=== PATIENT | female | born 1960 | race Caucasian/White ===

== ENCOUNTER 2018-08-07 10:56 | Emergency (ER) | payer OTHER ==
[2018-08-07] MEDS ORDERED: METO25TA23 PO (11:05)
--- NOTE | 2018-08-07 11:12 | ER Report ---
History and Physical Time Seen By MD: 11:05 Hx. of Stated Complaint: [facility]", denies s/s at this time, hx afib HPI/ROS CHIEF COMPLAINT: A. fib HISTORY OF PRESENT ILLNESS: 58-year-old female patient presents to emergency room with complaint of A. fib. Patient states that she has a long-standing history of A. fib. She states she has had 2 ablations. She states one was done in [place] the second was done at the [facility]. Patient states that with the second one they were not able to get the entire pathway burn, stating that if they gone any further she would have a heart attack. Patient states that she has been taking her medication. She was prescribed metoprolol twice a day. She states that while living in [place] she would intermittently take it in the evening. She states that rarely channeling problems. She states that she moved to [place]. During that time she never took it in the evening. She states that since she moved to [place], 3 months ago, that she has been trying to take her medication more regularly. She states that she still has episodes of A. fib. She denies having any nausea, vomiting or diarrhea. Patient states she did have an episode this morning where her heart was racing up over 200. She states she is very lightheaded, she was sweaty and clammy, she also states that she thought she was going to pass out. Patient took a short acting metoprolol, which seem to help. By the time she got to her primary care provider the A. fib was stopped. She was referred to the emergency room for further evaluation. REVIEW OF SYSTEMS: Respiratory: No cough, no dyspnea. Cardiovascular: As noted above Gastrointestinal: No vomiting, no abdominal pain. Musculoskeletal: No back pain. Allergies: Coded Allergies: Sulfa (Sulfonamide Antibiotics) (Verified Allergy, Unknown, 08/07/18) clarithromycin (Verified Allergy, Unknown, 08/07/18) Home Meds Active Scripts Nitrofurantoin Monohyd/M-Cryst (MACROBID 100 MG CAPSULE) 100 Mg Capsule, 100 MG PO BID, #14 CAPSULE Prov:GEMA CHRISTIAN 08/07/18 Metoprolol Succinate (METOPROLOL SUCCINATE) 50 Mg Tab.er.24h, 1 TAB PO QDAY, #30 TAB Prov:GEMA CHRISTIAN 08/07/18 Reported Medications Metoprolol Succinate (METOPROLOL SUCCINATE) 25 Mg Tab.er.24h, 2 TAB PO QDAY, TAB 08/07/18 Past Medical/Surgical History Patient has a past medical history of A. fib. Patient surgical history of cardiac ablation, appendectomy. Reviewed Nurses Notes: Yes Constitutional Vital Sign - Last 24 Hours 08/07/18 08/07/18 08/07/18 08/07/18 11:00 11:04 11:15 11:20 Temp 97.9 Pulse 88 88 82 Resp 16 24 15 B/P (MAP) 164/99 164/99 (120) Pulse Ox 93 96 94 O2 Delivery Room Air 08/07/18 08/07/18 08/07/18 08/07/18 11:30 11:35 12:00 12:05 Pulse 89 83 Resp 13 9 B/P (MAP) 147/81 (103) 147/76 (99) Pulse Ox 96 94 08/07/18 08/07/18 08/07/18 08/07/18 12:10 12:25 12:30 12:50 Pulse 83 85 75 Resp 12 13 18 B/P (MAP) 141/82 (101) Pulse Ox 93 94 92 08/07/18 08/07/18 08/07/18 13:00 13:05 13:20 Pulse 76 77 Resp 18 17 B/P (MAP) 133/67 (89) Pulse Ox 92 94 Physical Exam General Appearance: The patient is alert, has no immediate need for airway protection and no current signs of toxicity. Respiratory: Chest is non tender, lungs are clear to auscultation. Cardiac: regular rate and rhythm Gastrointestinal: Abdomen is soft and non tender, no masses, bowel sounds normal. Musculoskeletal: Neck: Neck is supple and non tender. Extremities have full range of motion and are non tender. Skin: No rashes or lesions. DIFFERENTIAL DIAGNOSIS: After history and physical exam differential diagnosis was considered for chest pain including but not limited to myocardial ischemia, pericarditis pulmonary embolus, chest wall pain, pleural inflammation and pulmonary infectious causes. Medical Decision Making Data Points Result Diagram: 08/07/18 1108 08/07/18 1108 Laboratory Hematology Test 08/07/18 11:08 08/07/18 12:35 Red Blood Count 5.10 M/uL (4.17-5.56) Mean Corpuscular Volume 98.7 fL (80.0-96.0) Mean Corpuscular Hemoglobin 33.9 pg (26.0-33.0) Mean Corpuscular Hemoglobin Concent 34.3 g/dL (32.0-36.0) Red Cell Distribution Width 13.4 % (11.5-14.5) Mean Platelet Volume 9.8 fL (7.2-11.1) Neutrophils (%) (Auto) 65.0 % (39.4-72.5) Lymphocytes (%) (Auto) 22.5 % (17.6-49.6) Monocytes (%) (Auto) 11.6 % (4.1-12.4) Eosinophils (%) (Auto) 0.4 % (0.4-6.7) Basophils (%) (Auto) 0.5 % (0.3-1.4) Nucleated RBC Relative Count (auto) 0.0 /100WBC Neutrophils # (Auto) 7.0 K/uL (2.0-7.4) Lymphocytes # (Auto) 2.4 K/uL (1.3-3.6) Monocytes # (Auto) 1.2 K/uL (0.3-1.0) Eosinophils # (Auto) 0.0 K/uL (0.0-0.5) Basophils # (Auto) 0.1 K/uL (0.0-0.1) Nucleated RBC Absolute Count (auto) 0.00 K/uL Sodium Level 140 mmol/L (137-145) Potassium Level 4.1 mmol/L (3.5-5.0) Chloride Level 105 mmol/L (98-107) Carbon Dioxide Level 29 mmol/L (22-31) Blood Urea Nitrogen 8 mg/dl (7-18) Creatinine 0.90 mg/dl (0.52-1.04) Glomerular Filtration Rate Calc > 60.0 Random Glucose 100 mg/dl (75-110) Calcium Level 9.5 mg/dl (8.4-10.2) Magnesium Level 2.0 mg/dl (1.7-2.2) Total Bilirubin 0.7 mg/dl (0.2-1.3) Aspartate Amino Transf (AST/SGOT) 26 U/L (0-35) Alanine Aminotransferase (ALT/SGPT) 24 U/L (0-56) Alkaline Phosphatase 63 U/L (0-126) Troponin I < 0.012 ng/ml B-Type Natriuretic Peptide 67 pg/ml (0-100) Total Protein 8.0 g/dl (6.3-8.2) Albumin 4.5 g/dl (3.5-5.0) Urine Color Yellow Urine Clarity Clear Urine pH 6.0 pH (4.8-9.5) Urine Specific Ruth 1.006 Urine Protein Negative mg/dL (NEGATIVE) Urine Glucose (UA) Negative mg/dL (NEGATIVE) Urine Ketones Negative mg/dL (NEGATIVE) Urine Blood Small (NEGATIVE) Urine Nitrite Negative (NEGATIVE) Urine Bilirubin Negative (NEGATIVE) Urine Urobilinogen Negative mg/dL (0.2-1.9) Urine Leukocyte Esterase Trace (NEGATIVE) Urine RBC 2 /HPF (0-2/HPF) Urine WBC 6 /HPF (0-5/HPF) Urine Squamous Epithelial Cells None /LPF (</=FEW) Urine Transitional Epithelial Cells Few /LPF (NONE-FEW) Urine Bacteria Many /HPF (NONE-FEW) Urine Mucus None /HPF (NONE-FEW) Chemistry Test 08/07/18 11:08 08/07/18 12:35 White Blood Count 10.7 k/uL (4.5-11.0) Red Blood Count 5.10 M/uL (4.17-5.56) Hemoglobin 17.3 g/dL (12.0-16.0) Hematocrit 50.3 % (34.0-47.0) Mean Corpuscular Volume 98.7 fL (80.0-96.0) Mean Corpuscular Hemoglobin 33.9 pg (26.0-33.0) Mean Corpuscular Hemoglobin Concent 34.3 g/dL (32.0-36.0) Red Cell Distribution Width 13.4 % (11.5-14.5) Platelet Count 257 K/uL (150-450) Mean Platelet Volume 9.8 fL (7.2-11.1) Neutrophils (%) (Auto) 65.0 % (39.4-72.5) Lymphocytes (%) (Auto) 22.5 % (17.6-49.6) Monocytes (%) (Auto) 11.6 % (4.1-12.4) Eosinophils (%) (Auto) 0.4 % (0.4-6.7) Basophils (%) (Auto) 0.5 % (0.3-1.4) Nucleated RBC Relative Count (auto) 0.0 /100WBC Neutrophils # (Auto) 7.0 K/uL (2.0-7.4) Lymphocytes # (Auto) 2.4 K/uL (1.3-3.6) Monocytes # (Auto) 1.2 K/uL (0.3-1.0) Eosinophils # (Auto) 0.0 K/uL (0.0-0.5) Basophils # (Auto) 0.1 K/uL (0.0-0.1) Nucleated RBC Absolute Count (auto) 0.00 K/uL Glomerular Filtration Rate Calc > 60.0 Calcium Level 9.5 mg/dl (8.4-10.2) Magnesium Level 2.0 mg/dl (1.7-2.2) Total Bilirubin 0.7 mg/dl (0.2-1.3) Aspartate Amino Transf (AST/SGOT) 26 U/L (0-35) Alanine Aminotransferase (ALT/SGPT) 24 U/L (0-56) Alkaline Phosphatase 63 U/L (0-126) Troponin I < 0.012 ng/ml B-Type Natriuretic Peptide 67 pg/ml (0-100) Total Protein 8.0 g/dl (6.3-8.2) Albumin 4.5 g/dl (3.5-5.0) Urine Color Yellow Urine Clarity Clear Urine pH 6.0 pH (4.8-9.5) Urine Specific Ruth 1.006 Urine Protein Negative mg/dL (NEGATIVE) Urine Glucose (UA) Negative mg/dL (NEGATIVE) Urine Ketones Negative mg/dL (NEGATIVE) Urine Blood Small (NEGATIVE) Urine Nitrite Negative (NEGATIVE) Urine Bilirubin Negative (NEGATIVE) Urine Urobilinogen Negative mg/dL (0.2-1.9) Urine Leukocyte Esterase Trace (NEGATIVE) Urine RBC 2 /HPF (0-2/HPF) Urine WBC 6 /HPF (0-5/HPF) Urine Squamous Epithelial Cells None /LPF (</=FEW) Urine Transitional Epithelial Cells Few /LPF (NONE-FEW) Urine Bacteria Many /HPF (NONE-FEW) Urine Mucus None /HPF (NONE-FEW) Urinalysis Test 08/07/18 12:35 Urine Color Yellow Urine Clarity Clear Urine pH 6.0 pH (4.8-9.5) Urine Specific Ruth 1.006 Urine Protein Negative mg/dL (NEGATIVE) Urine Glucose (UA) Negative mg/dL (NEGATIVE) Urine Ketones Negative mg/dL (NEGATIVE) Urine Blood Small (NEGATIVE) Urine Nitrite Negative (NEGATIVE) Urine Bilirubin Negative (NEGATIVE) Urine Urobilinogen Negative mg/dL (0.2-1.9) Urine Leukocyte Esterase Trace (NEGATIVE) Urine RBC 2 /HPF (0-2/HPF) Urine WBC 6 /HPF (0-5/HPF) Urine Squamous Epithelial Cells None /LPF (</=FEW) Urine Transitional Epithelial Cells Few /LPF (NONE-FEW) Urine Bacteria Many /HPF (NONE-FEW) Urine Mucus None /HPF (NONE-FEW) EKG/Imaging EKG Interpretation 12 lead EKG: Rhythm: normal sinus rhythm [place]: normal QRS: normal ST segments: normal Imaging CHEST PA LAT COMPARISON: None. HISTORY: heart racing FINDINGS: CARDIAC/VASC: No cardiac silhouette abnormality or cardiomegaly. Unremarkable pulmonary vasculature. MEDIASTINUM: No visible mass or adenopathy. LUNGS/PLEURA: No pneumothorax. No significant pulmonary parenchymal abnormalities. No effusion or pleural thickening. BONES: No fracture or visible bony lesion. OTHER:Negative. IMPRESSION: No acute cardiopulmonary process. Report Dictated By: Dioni Das at 08/07/2018 12:26 PM Report E-Signed By: Dioni Das at 08/07/2018 12:27 PM ED Course/Re-evaluation ED Course Patient was admitted to an exam room, history and physical were obtained. Differential diagnoses were considered. On examination lungs are clear, heart is regular, abdomen soft nontender. An EKG was done which showed a normal sinus rhythm. A CBC, CMP, chest x-ray, troponin were done. The lab results were unremarkable, chest x-ray showed no acute cardiopulmonary processes. Discussed the findings with the patient. Did ultimately decide to talk with cardiology. I discussed the case with Dr. Vasquez, local company tanker driver at [facility], I ran through the patient's history, and discussed increasing her metoprolol. He felt that with the patient being very hit or miss with taking her second dose that would be better to go ahead and have her take 50 mg daily as opposed to twice a day. He also recommended she follow-up with Dr. Thomas or Dr. Crawley, cardiologists who come to [place] and specialize in atrial fibrillation. I discussed the findings with the patient who verbalized understanding and agreement. Patient did have a urinary tract infection was 6 white blood cells per high-power field, a trace of sinus rates. We will go ahead and treat her as she did give us a very clean sample. A culture was ordered. Decision to Disposition Date: Aug 07, 2018 Decision to Disposition Time: 13:26 Depart Departure Latest Vital Signs Vital Signs Date Time Temp Pulse Resp B/P (MAP) Pulse Ox O2 Delivery O2 Flow Rate FiO2 08/07/18 13:20 77 17 94 08/07/18 13:00 133/67 (89) 08/07/18 11:00 97.9 Room Air Impression: Primary Impression: A-fib Additional Impression: UTI (urinary tract infection) Condition: Improved Disposition: HOME OR SELF-CARE New Scripts Nitrofurantoin Monohyd/M-Cryst (MACROBID 100 MG CAPSULE) 100 Mg Capsule 100 MG PO BID, #14 CAPSULE Prov: GEMA CHRISTIAN 08/07/18 Metoprolol Succinate (METOPROLOL SUCCINATE) 50 Mg Tab.er.24h 1 TAB PO QDAY, #30 TAB Prov: GEMA CHRISTIAN 08/07/18 Patient Instructions: A-fib (Atrial Fibrillation) (ED) Additional Instructions: Take medication as prescribed. Get plenty of rest. Return to the ER if condition worsens. Take a baby aspirin daily. Call to make an appointment with Dr. Crawley or Dr. Thomas . They will come to [place] this next month at the medical office building ([id number]) attached with the hospital. Problem Qualifiers Primary Impression: A-fib Atrial fibrillation type: unspecified Qualified Codes: I48.91 - Unspecifi ed atrial fibrillation Additional Impression: UTI (urinary tract infection) Urinary tract infection type: acute cystitis Hematuria presence: with hematuria Qualified Codes: N30.01 - Acute cystitis with hematuria GEMA CHRISTIAN [facility] Aug 07, 2018 11:12
[2018-08-07 11:47] LABS: PLATELET COUNT, AUTOMATED 257 K/uL (150-450)
--- NOTE | 2018-08-07 12:00 | EKG ---
FACILITY: [facility] [place] PATIENT NAME: VICKY FORD : [id number] MR: [id number] V: [id number] EXAM DATE: ORDERING PHYSICIAN: GEMA CHRISTIAN TECHNOLOGIST: EL Connor Reason : CP Blood Pressure : / mmHG Vent. Rate : 077 BPM Atrial Rate : 077 BPM P-R Int : 144 ms QRS Dur : 088 ms QT Int : 364 ms P-R-T Axes : 071 084 068 degrees QTc Int : 411 ms Normal sinus rhythm No ST-T abnormalities No previous ECGs available Confirmed by SUNNY AVILA ([id number]) on 08/07/2018 7:50:10 PM Referred By: Confirmed By:SUNNY AVILA
--- NOTE | 2018-08-07 12:32 | RADIOLOGY IMAGING REPORT ---
FACILITY: [facility] PATIENT NAME: Jazmine Sanders : 1960 MR: [id number] V: [id number] EXAM DATE: ORDERING PHYSICIAN: GEMA CHRISTIAN TECHNOLOGIST: Location: [facility] [place] Patient: Jazmine Sanders : 1960 Visit/Account:[id number] Date of Sevice: 08/07/2018 CHEST PA LAT COMPARISON: None. HISTORY: heart racing FINDINGS: CARDIAC/VASC: No cardiac silhouette abnormality or cardiomegaly. Unremarkable pulmonary vasculatu re. MEDIASTINUM: No visible mass or adenopathy. LUNGS/PLEURA: No pneumothorax. No significant pulmonary parenchymal abnormalities. No effusion or p leural thickening. BONES: No fracture or visible bony lesion. OTHER:Negative. IMPRESSION: No acute cardiopulmonary process. Report Dictated By: Dioni Das at 08/07/2018 12:26 PM Report E-Signed By: Dioni Das at 08/07/2018 12:27 PM WSN:[id number]
[2018-08-07 13:00] VITALS: BP 133/67
[2018-08-07] MEDS ORDERED: METO50TA19 PO (13:22)
[2018-08-07] MEDS ORDERED: NITR-105 PO (17:39)
== END 2018-08-07 13:30 | disposition home or self-care (01) ==
LOC: ER 11:12
DX: I48.91 Unspecified atrial fibrillation (principal); N30.01 Acute cystitis with hematuria; R42 Dizziness and giddiness; R00.0 Tachycardia, unspecified; R07.9 Chest pain, unspecified; R61 Generalized hyperhidrosis
CPT/HCPCS: 71046; 81001; 82040; 82247; 82310; 82374; 82435; 82565; 82947; 83735; 83880; 84075; 84132; 84155; 84295; 84450; 84460; 84484; 84520; 85025; 87077; 87088; 87186; 93005; 99284

== ENCOUNTER → 2018-09-01 | Outpatient (CLI) | payer OTHER ==
[~2018-09-01] MED LIST: ESCI20TA38 PO; METO25TA23 PO; METO50TA19 PO; NITR-105 PO
[2018-09-01 11:47] LABS: PLATELET COUNT, AUTOMATED 206 K/uL (150-450)
[2018-09-01 12:31] LABS: LDL CHOLESTEROL 197 mg/dl
== END ==
LOC: LAB 11:19
PROVIDERS: ATTEND Internal Medicine
DX: I48.0 Paroxysmal atrial fibrillation (principal)
CPT/HCPCS: 36415; 81001; 82040; 82247; 82310; 82374; 82435; 82465; 82565; 82947; 83718; 83735; 84075; 84132; 84155; 84295; 84443; 84450; 84460; 84478; 84520; 85025

== ENCOUNTER → 2018-10-13 | Outpatient (CLI) | payer OTHER ==
[~2018-10-13] MED LIST changes: +ASPI-1471 PO; +ROSU10TA PO; +UBID100C48 PO
--- NOTE | 2018-10-14 14:47 | RADIOLOGY IMAGING REPORT ---
[facility] PATIENT NAME: VICKY FORD : [id number] MR: [id number] V: [id number] EXAM DATE: ORDERING PHYSICIAN: JOSE AMARAL TECHNOLOGIST: Flaca Preciado PROCEDURE: BILATERAL DIGITAL SCREENING MAMMOGRAM WITH CAD ASSISTED INTERPRETATION & 3D TOMOSYNTHESIS REASON FOR STUDY: Screening. FAMILY HISTORY OF BREAST CANCER: BREAST PROCEDURES/TREATMENTS: COMPARISON: None. VIEWS OBTAINED: 2D & 3D full field CC & MLO. BREAST DENSITY: The breast tissue demonstrates scattered fibroglandular tissue elements. MAMMOGRAM FINDINGS: Benign calcifications in Left breast and Right breast are seen. There is no suspicious mass, calcification, or architectural distortion. IMPRESSION: BIRADS 2: Benign finding. No mammographic evidence for malignancy. DIAGNOSTIC CATEGORY 2--BENIGN FINDING. RECOMMENDATIONS: ROUTINE MAMMOGRAM AND CLINICAL EVALUATION IN 1 YEAR. Dictated by: Dominic Baird M.D. on 10/14/2018 at 13:13 Transcribed by: ANNY on 10/14/2018 at 14:31 Approved by: Dominic Baird M.D. on 10/14/2018 at 14:46 [facility]
== END ==
LOC: MAMO 00:21
PROVIDERS: ATTEND Internal Medicine
DX: Z12.31 Encounter for screening mammogram for malignant neoplasm of breast (principal)
CPT/HCPCS: 77063; 77067